=== PATIENT | female | born 1935 | race Caucasian/White ===

== ENCOUNTER 2017-01-24 06:47 | Day surgery (SDC) | payer BC ==
--- NOTE | ~2017-01-24 | EGD ---
EGD REPORT [facility] [address] [place]. 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 Estimated blood loss: None. Procedure: Pre-Anesthesia Assessment: - ASA Grade Assessment: III - A patient with severe systemic disease. After obtaining informed consent, the endoscope was passed under direct vision. Throughout the procedure, the patient's blood pressure, pulse, and oxygen saturations were monitored continuously. The GIF [id number] was introduced through the mouth, and advanced to the second part of duodenum. The upper GI endoscopy was accomplished without difficulty. The patient tolerated the procedure well. Findings: The esophagus was normal. A small amount of food (residue) was found in the gastric body. The exam of the stomach was otherwise normal. The examined duodenum was normal. The patient was placed in the supine position for PEG placement. The stomach was insufflated to appose gastric and abdominal dejesus. A site was located in the body of the stomach with excellent transillumination for placement. The abdominal wall was marked and prepped in a sterile manner. The area was anesthetized with 4 mL of 1% lidocaine. The trocar needle was introduced through the abdominal wall and into the stomach under direct endoscopic view. A snare was introduced through the endoscope and opened in the gastric lumen. The guide wire was passed through the trocar and into the open snare. The snare was closed around the guide wire. The endoscope and snare were removed, pulling the wire out through the mouth. A skin incision was made at the site of needle insertion. The 24 Fr EndoVive Safety gastrostomy tube was lubricated. The G-tube was passed over the guide wire through the mouth, and into the stomach. The trocar needle was removed, and the gastrostomy tube was pulled out from the stomach through the skin. The guide wire was removed, and the external bumper attached to the gastrostomy tube. The EGD REPORT [address] [address] NAME: ELZA CABALLERO : 33 STATUS : REG [facility] [place] PAT#: [id number] AGE: 81 ADM/REG DATE : 01/24/17 MR#: [id number] REPORT SERV DATE: 01/24/17 DICTATED BY: EUSEBIA JUÁREZ DATE: 01/24/17 REPORT STATUS : Draft TRANSCRIBED BY: [employer] DATE: 01/24/17 feeding tube was then cut to an appropriate length. The final position of the gastrostomy tube was confirmed by relook endoscopy, and skin marking noted to be 3 cm at the external bumper. The final tension and compression of the abdominal wall by the PEG tube and external bumper were checked and revealed that the bumper was loose and not touching the skin. The feeding tube was capped, and the tube site was cleaned and dressed. Impression: - Normal esophagus. - A small amount of food (residue) in the stomach. - Normal examined duodenum. - A PEG placement was successfully completed. Recommendation: - Return to previous diet. - Continue present medications. - Resume Coumadin (warfarin) at prior dose today. - Return to referring physician. - Please follow the post-PEG recommendations including: clean site with soap and water daily and dry thoroughly, may use PEG today for meds and water and may use PEG tomorrow for feedings. 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 All rights reserved. The codes documented in this report are preliminary and upon dental office receptionist review may be revised to meet current compliance requirements. EUSEBIA JUÁREZ, 01/24/2017 8:56 AM Number of Addenda: 0 Note Initiated On: 01/24/2017 8:31 AM [address] [place] [address]
[~2017-01-24 06:47] MED LIST: ACET500CAP PO; AMARYL1 MG PO; AMARYL2 PO; ATEN100 PO; BIOTIN5 MG PO; BUM1 PO; CARTIA XT300 MG/24 PO; CAT1 PO; CAT2 PO; CRESTOR5 MG PO; CYANO1000T PO; DEX4 PO; HYDRALAZINE100 MG PO; JANTOVEN3 MG PO; KDUR10 PO; KLOR-CON M2020 MEQ PO; L40 PO; LOP50 PO; NEUR300 PO; NEXIUM20 M1 PO; NORV25 PO; OMNICEF300 PO; PRAVAC PO; PRILOSEC OTC20 MG PO; REFRESH OPH; TEMOVATE0.052 EX; VITAMINS; VOLTAREN1 % TOP; [UNRECOGNIZED DRUG - OTHER] OR; [UNRECOGNIZED DRUG - OTHER] PO
[2017-01-24 07:09] LABS: INTERNATIONAL NORMAL RATI 1.7 UNITS (-); PROTIME (NOT ORD) 19.4 SEC (12.0-14.5)
[2017-03-03] MEDS ORDERED: FLUCON1 PO (15:07)
[2017-03-03] MEDS ORDERED: ELIQUIS 2.5 MG2.5 MG PO (17:13)
[2017-03-25] MEDS ORDERED: ROB1T PO (09:37)
[2017-06-01] MEDS ORDERED: ZOFRANODT8 PO (11:23)
[2017-06-01] MEDS ORDERED: COMP10B PO (11:23)
[2017-06-01] MEDS ORDERED: NORCO1 TAB PO (11:23)
[2017-06-01] MEDS ORDERED: NEUR300 PO (11:24)
[2017-06-01] MEDS ORDERED: CARTIA XT300 MG/24 PO (11:24)
[2017-06-01] MEDS ORDERED: LOP50 PO (11:25)
[2017-06-01] MEDS ORDERED: ELIQUIS 2.5 MG2.5 MG PO (11:25)
[2017-06-01] MEDS ORDERED: NEXIUM20 M1 PO (11:26)
== END 2017-01-24 23:59 | disposition home or self-care (01) ==
LOC: IVT 06:47
PROVIDERS: Anesthesiology; Internal Medicine Gastroenterology
PROC: 0DH63UZ Insertion of Feeding Device into Stomach, Percutaneous Approach (ICD-10-PCS; principal; 2017-01-24 09:00)
DX: R13.19 Other dysphagia (principal); R63.3 Feeding difficulties; R10.13 Epigastric pain; D49.0 Neoplasm of unspecified behavior of digestive system; C02.9 Malignant neoplasm of tongue, unspecified; I48.0 Paroxysmal atrial fibrillation; I12.9 Hypertensive chronic kidney disease with stage 1 through stage 4 chronic kidney disease, or unspecified chronic kidney disease; N18.9 Chronic kidney disease, unspecified; E11.22 Type 2 diabetes mellitus with diabetic chronic kidney disease; E11.40 Type 2 diabetes mellitus with diabetic neuropathy, unspecified; Z88.1 Allergy status to other antibiotic agents; Z88.2 Allergy status to sulfonamides; Z79.01 Long term (current) use of anticoagulants; Z79.899 Other long term (current) drug therapy
CPT/HCPCS: 36569; 82962; 85610; C1751; J0690

== ENCOUNTER 2017-02-04 16:36 | Observation (INO) | payer BC ==
--- NOTE | ~2017-02-04 | HP ---
History And Physical [place] [id number] [place] [place]. [address] NAME: MAXIMILIANO CABALLERO : 33 STATUS : REG ER PAT#: [id number] AGE: 81 ADM/REG DATE : 02/04/17 MR#: [id number] REPORT SERV DATE: 02/04/17 DICTATED BY: DONNA GIRARD DATE: 02/04/17 REPORT STATUS : Draft TRANSCRIBED BY: KAILA DATE: 02/04/17 DATE OF ADMISSION: 02/04/2017 PRIMARY FITTER TACKER: Luke Farris M.D. CHIEF COMPLAINT: None. REASON FOR CONSULTATION: Atrial fibrillation with rapid ventricular response. The source is the patient, her family, and the chart. HISTORY OF PRESENT ILLNESS: Ms. Caballero is a very pleasant 81-year-old white woman with a history of atrial fibrillation, on Coumadin anticoagulation. She also has a history of stage IV tongue cancer and has a feeding tube. She has not been able to eat. Because of dehydration, she goes to the infusion center and receives intravenous fluids every couple days starting last week. She has also noticed diarrhea with her tube feeds. She has not had any bleeding. No fever or chills. She has not had any chest pain, palpitations, or syncope. She does have some shortness of breath. REVIEW OF SYSTEMS: All other systems are negative. ALLERGIES: SULFA. MEDICATIONS: As per her home list include gabapentin, Cartia XT, Bumex, potassium, metoprolol, Jantoven, Biofen, diclofenac, Nexium, rosuvastatin. CARDIAC RISK FACTORS: Hypertension, cholesterol, former tobacco. Denies diabetes or family history. SOCIAL HISTORY: The patient lives in [place]. She is . She has two sons and one daughter, who are alive and well. She is retired. FAMILY HISTORY: Negative for coronary artery disease at young age. PAST MEDICAL HISTORY: Significant for atrial fibrillation on and off since summer 2015. She is anticoagulated with Coumadin. Stage IV tongue cancer, gastric tube. She has had teeth extractions. PHYSICAL EXAMINATION: GENERAL: She is a chronically ill-appearing, elderly white woman, in no acute distress. VITAL SIGNS: Blood pressure is 135/78, pulse 130 and irregular, temperature 98.3. HEENT: Sclerae anicteric. Lips without cyanosis. Carotids 2+ and symmetrical. No bruits. No JVD. No thyromegaly. LUNGS: Clear anteriorly. No use of accessory muscles. HEART: Irregularly irregular without murmur, gallop, or rub. ABDOMEN: Positive bowel sounds. Soft, nontender. History And Physical [address] [address] NAME: MAXIMILIANO CABALLERO : 33 STATUS : REG ER PAT#: [id number] AGE: 81 ADM/REG DATE : 02/04/17 MR#: [id number] REPORT SERV DATE: 02/04/17 DICTATED BY: DONNA GIRARD DATE: 02/04/17 REPORT STATUS : Draft TRANSCRIBED BY: KAILA DATE: 02/04/17 EXTREMITIES: Pulses 2+ and symmetrical. No cyanosis or clubbing. Trace edema. BACK: No CVA tenderness. MUSCULOSKELETAL: Diminished tone. NEURO: Alert and oriented x3. IMAGING DATA: EKG reveals atrial fibrillation with rapid ventricular response, low voltage QRS, nonspecific ST-T wave changes. LABS: Sodium 141, potassium 4.2, chloride 107, carbon dioxide 24, BUN 26, creatinine 1.01, glucose 103. INR 3.02. Troponin less than 0.02. BNP level 767. White count 8.0, hemoglobin 12.9, hematocrit 38.1, platelets 291,000. IMPRESSION: 1. Atrial fibrillation with rapid ventricular response, probably secondary to other medical problems. 2. Stage 4 tongue cancer. 3. Feeding tube. 4. Diarrhea. 5. Dehydration requiring IV infusions of fluids every few days. 6. Anticoagulated with Coumadin. RECOMMENDATIONS: 1. Admit. 2. IV diltiazem for rate control. 3. Continue home medications. 4. Cautious IV fluids. 5. Hospital Service to see regarding diarrhea. 6. Home when rate controlled and okay with Hospitalist Service. 7. Check TSH, free T4, and urinalysis. [place]/KAILA Donna Girard M.D. / [id number] CC: Christopher Bonilla
[2017-02-04 15:08] LABS: BASOPHILS 0.5 %; BASOPHILS ABSOLUTE 0.04 10/3/uL (0.0-0.16); EOSINOPHILS 1.1 %; EOSINOPHILS ABSOLUTE 0.09 10/3/uL (0.0-0.53); IMMATURE GRANULOCYTES 0.8 %; IMMATURE GRANULOCYTES ABSOLUTE 0.06 10/3/uL (0.0-0.11); LYMPHOCYTES 10.1 %; LYMPHOCYTES ABSOLUTE 0.81 10/3/uL (0.67-4.30); MEAN PLATELET VOLUME 11.7 fL (9.2-13.0); MONOCYTES 10.3 %; MONOCYTES ABSOLUTE 0.82 10/3/uL (0.21-1.20); NEUTROPHILS 77.2 %; NEUTROPHILS ABSOLUTE 6.18 10/3/uL (2.02-8.40); RED CELL COUNT 4.58 10/6/uL (4.0-5.6)
[2017-02-04 15:10] LABS: HEMATOCRIT 38.1 % (36.0-48.0); HEMOGLOBIN 12.9 g/dL (12.0-16.0); MANUAL DIFF NO %; MEAN CORPUS HGB CONC 33.9 g/dL (32.0-36.0); MEAN CORPUSCULAR HEMOGLOB 28.2 pg (26.0-34.0); MEAN CORPUSCULAR VOLUME 83.2 fL (80-100); PLATELET COUNT 291 10/3/uL (150-400)
[2017-02-04 15:16] LABS: PARTIAL THROMBO TIME 45.1 SEC (22.5-37.2)
[2017-02-04 15:18] LABS: PROTIME (NOT ORD) 30.7 SEC (12.0-14.5)
[2017-02-04 15:36] LABS: CHLORIDE, SERUM 107 MMOL/L (96-112); POTASSIUM, SERUM 4.2 MMOL/L (3.5-5.3); SODIUM, SERUM 141 MMOL/L (135-148); TROPONIN I <0.02 NG/ML (<0.05)
[2017-02-04 15:37] LABS: BUN (BLOOD UREA NITROGEN) 26 MG/DL (6-23); CALCIUM, SERUM 8.6 MG/DL (8.5-10.4); CHEST PAIN PROFILE TAT 0 Hrs 34 Mins; CO2 (CARBON DIOXIDE) 24 MMOL/L (24-34); CREATININE 1.01 MG/DL (0.55-1.02); GFR AFRICAN AMERICAN 60 ML/MIN (>=60); GFR NON AFRICAN AMERICAN 52 ML/MIN (>=60); GLUCOSE, SERUM 103 MG/DL (60-99)
[2017-02-04] MEDS ORDERED: NEUR300 PEG (16:55)
[2017-02-04] MEDS ORDERED: CARTIA XT300 MG/24 PEG (16:55)
[2017-02-04] MEDS ORDERED: LOP50 PO (16:56)
[2017-02-04] MEDS ORDERED: BUM1 PEG (16:56)
[2017-02-04] MEDS ORDERED: KLOR-CON M2020 MEQ PEG (16:56)
[2017-02-04] MEDS ORDERED: NEXIUM20 M1 PEG (16:57)
[2017-02-04] MEDS ORDERED: JANTOVEN2.5 MG PEG (16:57)
[2017-02-04] MEDS ORDERED: HARD NAILS PEG (16:57)
[2017-02-04] MEDS ORDERED: CRESTOR5 MG PEG (16:58)
[2017-02-04] MEDS ORDERED: VITAMIN D2000 UNIT PEG (16:58)
[2017-02-04] MEDS ORDERED: [UNRECOGNIZED DRUG - OTHER] PEG (16:59)
[2017-02-04] MEDS ORDERED: COQ-10200 MG PEG (16:59)
[2017-02-04] MEDS ORDERED: ANTIOXIDANT PEG (17:00)
[2017-02-04] MEDS ORDERED: AMOXIL500C PEG (17:05)
[2017-02-04] MEDS ORDERED: ZOFRANODT8 PEG (17:06)
[2017-02-04] MEDS ORDERED: NORCO1 TA1 PO (17:06)
[2017-02-04] MEDS ORDERED: CHEMOTHERAPY IV (17:07)
[2017-02-04] MEDS ORDERED: DEX4 PO (17:07)
[2017-02-05 07:05] LABS: BASOPHILS 0.7 %; BASOPHILS ABSOLUTE 0.04 10/3/uL (0.0-0.16); EOSINOPHILS ABSOLUTE 0.06 10/3/uL (0.0-0.53); HEMATOCRIT 35.5 % (36.0-48.0); HEMOGLOBIN 11.8 g/dL (12.0-16.0); IMMATURE GRANULOCYTES 1.2 %; IMMATURE GRANULOCYTES ABSOLUTE 0.07 10/3/uL (0.0-0.11); LYMPHOCYTES 12.7 %; LYMPHOCYTES ABSOLUTE 0.73 10/3/uL (0.67-4.30); MEAN CORPUS HGB CONC 33.2 g/dL (32.0-36.0); MEAN CORPUSCULAR HEMOGLOB 27.7 pg (26.0-34.0); MEAN CORPUSCULAR VOLUME 83.3 fL (80-100); MEAN PLATELET VOLUME 11.3 fL (9.2-13.0); MONOCYTES 12.5 %; MONOCYTES ABSOLUTE 0.72 10/3/uL (0.21-1.20); NEUTROPHILS 71.9 %; NEUTROPHILS ABSOLUTE 4.14 10/3/uL (2.02-8.40); PLATELET COUNT 266 10/3/uL (150-400); RBC DISTRIBUTION WIDTH 14.8 % (12.0-16.0); RED CELL COUNT 4.26 10/6/uL (4.0-5.6); WHITE BLOOD CELLS 5.8 10/3/uL (4.5-10.5)
[2017-02-05 07:07] LABS: INTERNATIONAL NORMAL RATI 3.5 UNITS (-); PROTIME (NOT ORD) 34.9 SEC (12.0-14.5)
[2017-02-05 07:16] LABS: MANUAL DIFF NO %
[2017-02-05 07:22] LABS: A/G RATIO 0.6 (0.7-1.9); ALBUMIN 2.1 G/DL (3.5-5.0); ALKALINE PHOSPHATASE 142 U/L (45-117); BUN (BLOOD UREA NITROGEN) 21 MG/DL (6-23); CALCIUM, SERUM 8.5 MG/DL (8.5-10.4); CHLORIDE, SERUM 108 MMOL/L (96-112); CO2 (CARBON DIOXIDE) 26 MMOL/L (24-34); CREATININE 0.92 MG/DL (0.55-1.02); FREE T4 1.57 NG/DL (0.76-1.46); GFR AFRICAN AMERICAN 67 ML/MIN (>=60); GFR NON AFRICAN AMERICAN 58 ML/MIN (>=60); GLOBULIN 3.5 G/DL (2.5-4.1); GLUCOSE, SERUM 77 MG/DL (60-99); POTASSIUM, SERUM 4.3 MMOL/L (3.5-5.3); SGOT(AST) 19 U/L (5-40); SGPT(ALT) 30 U/L (5-65); SODIUM, SERUM 140 MMOL/L (135-148); TOTAL BILIRUBIN 0.7 MG/DL (0-1.2); TOTAL PROTEIN 5.6 G/DL (6.0-8.5)
[2017-02-06 06:29] LABS: BUN (BLOOD UREA NITROGEN) 21 MG/DL (6-23); CALCIUM, SERUM 8.9 MG/DL (8.5-10.4); CHLORIDE, SERUM 109 MMOL/L (96-112); CO2 (CARBON DIOXIDE) 24 MMOL/L (24-34); CREATININE 0.96 MG/DL (0.55-1.02); GFR AFRICAN AMERICAN 64 ML/MIN (>=60); GFR NON AFRICAN AMERICAN 55 ML/MIN (>=60); GLUCOSE, SERUM 106 MG/DL (60-99); POTASSIUM, SERUM 4.4 MMOL/L (3.5-5.3); SODIUM, SERUM 140 MMOL/L (135-148)
[2017-02-06 06:34] LABS: INTERNATIONAL NORMAL RATI 3.8 UNITS (-); PROTIME (NOT ORD) 37.2 SEC (12.0-14.5)
[2017-02-06 06:36] LABS: ASCORBIC ACID (UR NOT ORDER) NEG (NEG); BILIRUBIN, URINE NEGATIVE (NEG); KETONE, URINE NEGATIVE (NEG); LEUKOCYTE ESTERASE(NOT OR MOD (NEG); WBC (NOT ORDERED) (RFLEX) 92 (0-5)
[2017-02-06] MEDS ORDERED: MAGOX4 PO (09:22)
[2017-03-03] MEDS ORDERED: FLUCON1 PO (15:07)
[2017-03-03] MEDS ORDERED: ELIQUIS 2.5 MG2.5 MG PO (17:13)
[2017-03-25] MEDS ORDERED: ROB1T PO (09:37)
[2017-06-01] MEDS ORDERED: ZOFRANODT8 PO (11:23)
[2017-06-01] MEDS ORDERED: NORCO1 TAB PO (11:23)
[2017-06-01] MEDS ORDERED: COMP10B PO (11:23)
[2017-06-01] MEDS ORDERED: NEUR300 PO (11:24)
[2017-06-01] MEDS ORDERED: CARTIA XT300 MG/24 PO (11:24)
[2017-06-01] MEDS ORDERED: LOP50 PO (11:25)
[2017-06-01] MEDS ORDERED: ELIQUIS 2.5 MG2.5 MG PO (11:25)
[2017-06-01] MEDS ORDERED: NEXIUM20 M1 PO (11:26)
== END 2017-02-06 11:22 | disposition home or self-care (01) ==
LOC: ER 16:36 → 2SO 18:16
PROVIDERS: Emergency Medicine; Internal Medicine Cardiovascular Disease; Nurse Practitioner Family
DX: I48.91 Unspecified atrial fibrillation (principal); R00.0 Tachycardia, unspecified; R19.7 Diarrhea, unspecified; E86.0 Dehydration; Z88.2 Allergy status to sulfonamides; Z79.01 Long term (current) use of anticoagulants; Z98.890 Other specified postprocedural states; Z88.8 Allergy status to other drugs, medicaments and biological substances; Z79.2 Long term (current) use of antibiotics; Z79.899 Other long term (current) drug therapy; Z79.891 Long term (current) use of opiate analgesic; Z90.49 Acquired absence of other specified parts of digestive tract
CPT/HCPCS: 71010; 80048; 80053; 81001; 82962; 83036; 83735; 83880; 84439; 84443; 84484; 85025; 85610; 85730; 87077; 87086; 87186; 93005; 96365; 96366; 96376; 99285; A9270-GY; G0378; J3475